=== PATIENT | female | born 1985 | race Caucasian/White ===

== ENCOUNTER 2024-10-25 11:34 | Emergency (ER) | payer BC, SELFPAY ==
--- OUTSIDE RECORDS SUMMARY | 2023-09-23 04:30 | XMS_ITS ---
Author Organization [facility] Address [address] [place] [address] Care Team Providers Care Tap Puller Name Role Phone Needed, Needed Primary Care Provider TARSHA Contreras [phone] REASON FOR VISIT Nose - Sinus Encounters Encounter Location Date Provider Diagnosis [facility] [address] [place] [address] 09/23/2023 TARSHA GUZMÁN Plan Of Treatment No Information History and Physical Notes * HPI (History of Present Illness) Category Sub-Category Detail Notes Category Not es --Narrative-- Mary flowers is a 38 y.o. female who presents for initial evaluation of her nose and sinuses. Progress Notes * Mary ANDRADEDOB:1985 (39 yo F)Acc No.[id number]:09/23/2023 Patient: Mary Sherwood Provider: Trish Guzmán MD :1985 A ge:38 Y S ex:Female Date:09/23/2023 Address:[address], [place] [id number] Pcp:Needed Needed Subjective: * Chief Complaints: * N ose - Sinus * HPI: - -Narrative--: Mary Andrade is a 38 y.o. female who presents for initial evaluation of her nose and sinuses. * Electronic signature of DINESH GUZMÁN MD on 10/25/2024 at 02:06 PM CDT Sign off status: Pending * Provider: Trish Guzmán MD Date: 0 09/23/2023 Generated for Yessica alfaro/Esther/Suellen on: 0 10/25/2024 02:06 PM CDT
[2024-10-25 11:58] VITALS: BP 128/83; PULSE 78; RESP 18; TEMP 37.2; O2SAT 99; BMI 23.3
--- OUTSIDE RECORDS SUMMARY | 2024-10-25 14:07 | XMS_ITS | CCD ---
Author Name Interface, [id number] lity Address [address] [place] [address] Organization [facility] Address [address] [place] [address] Care Team Providers Care Pesticide Chemist Name Role Phone Joanna GAYLE, KARIN, Christin Unavailable Unavaila ble Reason for Visit GENETICS NEW PT EXTERNAL REFERRAL 60 MIN Problems Diagnosis Status Date of Diagnosis Resolution Date Family history of colon cancer Active Family history of malignant neoplasm of ovary (situation) Active Social History Date Name Value Sex Female
--- OUTSIDE RECORDS SUMMARY | 2024-10-25 14:07 | XMS_ITS | Clinical Summary ---
Author Organization [facility] Health Address [address] [place] [address] Care Team Providers Care Pantomimist Name Role Phone Unavailable Primary Care Provider Unavailabl e Social History Tobacco Use Types Packs/Day Years Used Date Smoking Tobacco: Never Assessed Comments Unknown Sex and Gender Information Value Date Recorded Sex Assigned at Not on file Legal Sex Female 2:01 PM PST Gender Identity Not on file Sexual Orientation Not on file Plan of Treatment Not on file
--- OUTSIDE RECORDS SUMMARY | 2024-10-25 14:07 | XMS_ITS | Clinical Summary ---
Author Organization [employer] [facility] Address [address] [place] [id number] Care Team Providers Care Office Electrician Name Role Phone Pcp, No Primary Care Provider Unavailabl e Allergies Active Allergy Reactions Criticality Noted Date Comments Sulfa (Sulfonamide Antibiotics) *Unknown - Childhood Rxn Low 10/13/2014 as a baby Medications MULTIVITAMIN ORAL Take by mouth. Active organ concentrates (ADRENAL ORAL) Take by mouth. Active iron/mfolate/C/E/ B12/biot/sadie (HEMAX,METHYLFOLA TE GLUCOSAMIN, ORAL) Take by mouth. Active amoxicillin 500 mg capsule Take 2 capsules by mouth three times a day as directed* 4 Active ALPRAZolam 0.25 mg tablet Take 0.25 mg by mouth at bedtime if needed. Active amoxicillin-clavu lanate 875-125 mg tabletIndications :Acute frontal sinusitis, recurrence not specified Take 1 Tablet by mouth two times daily with meals for 5 days. 10 Tablet 5 09/26/19 25 Active Problems Problem Noted Date Diagnosed Date ASCUS with positive high risk HPV cervical 07/07 Overview (07/27/2024): 06/2024 ASCUS/HPV+, HPV 16/18 negative 07/2024: colposcopy negative Plan: Pap smear/HPV testing 06/2025 Attention deficit hyperactiv ity disorder (ADHD), inattentive type, mild, in partial remission 02/28/2022 Eating disorder 02/28/2022 ANABELLA (generalized anxiety disorder) 02/28/2022 OCD (obsessive compulsive disorder) 02/28/2022 Persistent depressive disorder 02/28/2022 Tension type headache 05/14/2016 Migraine with aura and witho ut status migrainosus, not intractable 03/22/2016 Anxiety 12/21/2014 Herpes zoster infection 12/21/2014 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 Encounters Date Type Department Care Team Description 10/14/2024 3:46 PM CDT - 10/14/2024 5:28 PM CDT Emergency [facility] [address] [place] [address] Roney Lehman MD Ocular migraine (Primary Dx) Discharge Disposition: Home Self Care 10/14/2024 3:05 PM CDT Office Visit [facility] [address] [place] [address] Leon Pina PA Vision Change 10/14/2024 Travel 09/20/2024 4:30 PM CDT Telemedicine [facility] [address] [place] [address] Mahamed Nguyen NP Telehealth (Virtual visit, no vital taken/Pt is in [place] right now/Had a cold since last Friday but now it's causing tons of pressure in face , and head teeth and head and keeping me up all night with a cough); Medication Management (Pt reported she is currently taking sudafed, and mucinex. Pt is currently using afrin for nasal congestion ) 09/20/2024 Travel 07/27/2024 Telephone [facility] [address] [place] [address] Tess Fitch MD Results from Last 3 Months Immunizations Immunization Administration Dates Next Due COVID-19 vaccine ([facility] 30mcg/0.3mL) 12YO+ AMNA-SUCROSE HELADIO CRANDALL 05/05/2021,08/02/2020,07/12/2020 COVID-19 vaccine ([facility] 30mcg/0.3mL) HELADIO CRANDALL 08/02/2020,07/12/2020 Tdap 11/30/2015,04/21/2015 Social History Tobacco Use Types Packs/Day Years Used Date Smoking Tobacco: Former Cigarettes 0.5 4 0 10/26/2005 - 10/26/2009 Smokeless Tobacco: Never Tobacco Cessation:Counseling Given: Not Answered Comments:10/26/20 ES Alcohol Use Standard Drinks/Week Comments Yes 0 (1 standard drink = 0.6 oz pur e alcohol) 2 drinks a week PHQ-2 Answer Date Recorded PHQ-2 TOTAL SCORE 3 06/22/2024 Social Connections Answer Date Recorded Do you often feel lonely or isolated from those around you? 0 06/22/2024 Financial Resource Strain Answer Date R ecorded Difficulty of Paying Living Expenses 3 06/22/2024 Difficulty of Paying Living Expenses Not on file 06/22/2024 Food Insecurity Answer Date Recorded Do you worry your food will run out before you are able to buy more? 1 06/22/2024 Transportation Needs Answer Date Record ed Does lack of transportation keep you from medica l appointments? 1 06/22/2024 Does lack of transportation keep you from work, meetings or getting things that you need? 1 06/22/2024 Housing Stability Answer Date Recorded What is your housing situation today? 1 06/22/2024 Interpersonal Safety Answer Date Record ed Are you being hit, kicked, p ushed or yelled at (see row info)? No 10/14/2024 Interpersonal Safety Abuse 12 - 18 Not on file 10/14/2024 Interpersonal Safety Ambulatory Vulnerability No t on file 10/14/2024 Utilities Answer Date Recorded Do you have trouble paying f or utilities (for example, heat, electricity, water, phone)? 1 06/22/2024 Comments No Sex and Gender Information Value Date Recorded Sex Assigned at Not on file Legal Sex Female 8:47 AM CDT Gender Identity Not on file Sexual Orientation Not on file Obstetrics History Last Filed Vital Signs Vital Sign Reading Time Taken Comments Blood Pressure 138/98 10/14/2024 5:15 PM CDT Pulse 69 10/14/2024 5:15 PM CDT Temperature 36.8 C (98.3 F) 10/14/2024 3:54 PM CDT Respiratory Rate 16 10/14/2024 5:15 PM CDT Oxygen Saturation 98% 10/14/2024 5:15 PM CDT Inhaled Oxygen Concentration - - Weight 63.5 kg (140 lb) 10/14/2024 3:54 PM CDT Height 165.1 cm (5' 5) 10/14/2024 3:54 PM CDT Body Mass Index 23.3 10/14/2024 3:54 PM CDT Plan of Treatment Upcoming Encounters Date Type Department Care Team (Late st Contact Info) Description 10/28/2024 7:40 AM CDT Office Visit [facility] [address] [place] [phone] Cindy Aguirre, OD [address] [place] [address] Health Maintenance Due Date Last Done Comments HIV for age 15-65 07/04/2002 Hepatitis C screening for age 18-79 07/04/2005 Hepatitis B series for 19+ (1 of 3 - 19+ 3-dose series) 07/04/2006 COVID-19 vaccine series ( season) 2023 05/05/2021, 05/05/2021, 08/02/2020, Additional history exists Influenza Vaccine (#1) 2024 BMI (ht and wt on same day) for age 18+ 06/22/2025 06/22/2024, 10/26/2020 Depression screening for age 12+ 06/22/2025 06/22/2024, 10/26/2020 Pap test for age 21-65 07/21/2025 (Verified in Care Everywhere or Patient Record), 06/22/2024, 06/22/2024 Tetanus booster 11/29/2025 11/30/2015, 04/21/2015 Pneumococcal series for age 6-49 Aged Out No longer eligible based on patient's age to complete this topic Procedures Procedure Name Priority Date/Time Associated Diagnosis Comments CT HEAD BRAIN WO STAT 10/14/2024 4:[address] ANGIO HEAD AND NECK CAROTID STAT 10/14/2024 4:35 PM CDT CBC WITH AUTO DIFFERENTIAL STAT 10/14/2024 4:15 PM CDT BASIC METABOLIC PANEL STAT 10/14/2024 4:15 PM CDT CBC WITH AUTO DIFFERENTIAL STAT 10/14/2024 4:15 PM CDT WEED SCIENCE RESEARCH TECHNICIAN THIN PREP PAP SCREEN IMAGED Routine 06/22/2024 5:31 PM DIRECTOR TALENT MANAGEMENT Screening for malignant neoplasm of cervix from Last 3 Months or Most Recently Relevant to Health Maintenance Results * CT HEAD BRAIN WO (10/14/2024 4:39 PM CDT) Anatomical Region Laterality Modality HEAD, BRAIN Computed Tomogra phy 10/14/2024 4:59 PM CDT Impressions 10/14/2024 4:[address] head CT. Please note that all CT scans at this facility use dose modulation, iterative reconstruction, and/or weight-based dosing when appropriate to reduce radiation dose to as low as reasonably achievable. Dictated by: Vesna Moreira MD @ 10/14/2024 16:59:29 (Electronically Signed) Narrative 10/14/2024 4:59 PM CDT For Patients: As a result of the Cures Act, medical imaging exams and procedure reports are released immediately into your electronic medical record. You may view this report before your referring provider. If you have questions, please contact your health care provider. CT HEAD DATE: 10/14/2024 CLINICAL HISTORY: Patient with headache. TECHNIQUE: Standard CT scanning of the head was performed. COMPARISON: None. FINDINGS: There is no intracranial hemorrhage. The cardona matter-white matter differentiation is intact. The size of the ventricular system is normal for age. There is no mass effect or midline shift. The calvarium is unremarkable. The orbits are unremarkable. The paranasal sinuses are unremarkable. The mastoid air cells are unremarkable. The soft tissues are unremarkable. Procedure Note Vesna Moreira MD - 10/14/2024 For Patients: As a result of the Cures Act, medical imagingexams and procedure reports are released immediately into your electronicmedical record. You may view this report before your referring provider.If you have questions, please contact your health care provider. CT HEAD DATE: 10/14/2024 CLINICAL HISTORY: Patient with headache. TECHNIQUE: Standard CT scanning of the head was performed. COMPARISON: None. FINDINGS: There is no intracranial hemorrhage. The cardona matter-white matter differentiation is intact. The size of the ventricular system is normal for age. There is no mass effect or midline shift. The calvarium is unremarkable. The orbits are unremarkable. The paranasal sinuses are unremarkable. The mastoid air cells are unremarkable. The soft tissues are unremarkable. IMPRESSION: Normal head CT. Please note that all CT scans at this facility use dose modulation,iterative reconstruction, and/or weight-based dosing when appropriate toreduce radiation dose to as low as reasonably achievable. Dictated by: Vesna Moreira MD @ 10/14/2024 16:59:29 (Electronically Signed) us Roney Lehman MD CT Final Result * CTA HEAD AND NECK CAROTID (10/14/2024 4:35 PM CDT) Anatomical Region Laterality Modality BRAIN, NECK Computed Tomogra phy 10/14/2024 5:01 PM CDT Addenda Addendum by Vesna Moreira MD on 10/14/2024 5:02 PM CDT For Patients: As a result of the Cures Act, medical imaging exams and procedure reports are released immediately into your electronic medical record. You may view this report before your referring provider. If you have questions, please contact your health care provider. CT ANGIOGRAM HEAD DATE: 10/14/2024 CLINICAL HISTORY: Patient with focal neurological deficits. TECHNIQUE: Standard helical CT image acquisition through the intracranial circulation following intravenous administration of contrast material with bolus tracking. 2D and 3D MIP images for post-processing were performed and interpreted on an independent workstation and 3D images were permanently archived. COMPARISON: CT same day. FINDINGS: There is no proximal intracranial large vessel occlusion. There is no intracranial aneurysm. The right internal carotid artery is normal. The right middle cerebral artery and its branches are normal. The right anterior cerebral artery and its branches are normal. The left internal carotid artery is normal. The left middle cerebral artery and its branches are normal. The left anterior cerebral artery and its branches are normal. The anterior communicating artery is well visualized and appears normal. The right vertebral artery and PICA are normal. The left vertebral artery and PICA are normal. The left vertebral artery is dominant. The basilar artery is patent and appears normal. The right posterior cerebral artery is normal. The left posterior cerebral artery is normal. The visualized venous structures are patent. IMPRESSION: Patent proximal intracranial vasculature without intracranial aneurysms. Please note that all CT scans at this facility use dose modulation, iterative reconstruction, and/or weight-based dosing when appropriate to reduce radiation dose to as low as reasonably achievable. Dictated by: Vesna Moreira MD @ 10/14/2024 17:02:42 (Electronically Signed) Impressions 10/14/2024 5:01 PM CDT Patent cervical vasculature. Please note that all CT scans at this facility use dose modulation, iterative reconstruction, and/or weight-based dosing when appropriate to reduce radiation dose to as low as reasonably achievable. Dictated by: Vesna Moreira MD @ 10/14/2024 17:01:07 (Electronically Signed) Narrative 10/14/2024 5:01 PM CDT For Patients: As a result of the Cures Act, medical imaging exams and procedure reports are released immediately into your electronic medical record. You may view this report before your referring provider. If you have questions, please contact your health care provider. CT ANGIOGRAM NECK DATE: 10/14/2024 CLINICAL HISTORY: Patient with focal neurological deficits. TECHNIQUE: Standard helical CT image acquisition of the neck up to the skull base after bolus intravenous contrast enhancement. 2D and 3D MIP images for post-processing were performed and interpreted on an independent workstation and 3D images were permanently archived. COMPARISON: CT same day. FINDINGS: The origins of the great vessels from the aortic arch are patent. The origin of the right vertebral artery is patent. The origin of the left vertebral artery is patent. The common carotid arteries are patent. There is no stenosis at the origin of the right internal carotid artery. There is no stenosis at the origin of the left internal carotid artery. The rest of the cervical segments of the internal carotid arteries are patent up to the skull base. The left vertebral artery is dominant. The cervical segments of the vertebral arteries are patent up to the skull base. The visualized lung apices are unremarkable. The thyroid gland is unremarkable. The soft tissues of the neck are unremarkable. There are degenerative changes in the cervical spine. Procedure Note Vesna Moreira MD - 10/14/2024 For Patients: As a result of the Cures Act, medical imagingexams and procedure reports are released immediately into your electronicmedical record. You may view this report before your referring provider.If you have questions, please contact your health care provider. CT ANGIOGRAM NECK DATE: 10/14/2024 CLINICAL HISTORY: Patient with focal neurological deficits. TECHNIQUE: Standard helical CT image acquisition of the neck up to theskull base after bolus intravenous contrast enhancement. 2D and 3D MIPimages for post- processing were performed and interpreted on anindependent workstation and 3D images were permanently archived. COMPARISON: CT same day. FINDINGS: The origins of the great vessels from the aortic arch are patent. Theorigin of the right vertebral artery is patent. The origin of the leftvertebral artery is patent. The common carotid arteries are patent. There is no stenosis at the origin of the right internal carotid artery. There is no stenosis at the origin of the left internal carotid artery. The rest of the cervical segments of the internal carotid arteries arepatent up to the skull base. The left vertebral artery is dominant. The cervical segments of thevertebral arteries are patent up to the skull base. The visualized lung apices are unremarkable. The thyroid gland is unremarkable. The soft tissues of the neck are unremarkable. There are degenerative changes in the cervical spine. IMPRESSION: Patent cervical vasculature. Please note that all CT scans at this facility use dose modulation,iterative reconstruction, and/or weight-based dosing when appropriate toreduce radiation dose to as low as reasonably achievable. Dictated by: Vesna Moreira MD @ 10/14/2024 17:01:07 (Electronically Signed) us Roney Lehman MD CT Edite d Result - Final * CBC WITH AUTO DIFFERENTIAL (10/14/2024 4:15 PM CDT) WHITE BLOOD COUNT 7.2 4.5 - 11.0 thou/cu mm 10/14/2024 4:[address] [facility] RED BLOOD COUNT 4.21 4.00 - 5.20 mil/cu mm 10/14/2024 4:22 PM [facility] HEMOGLOBIN 12.6 12.0 - 16.0 g/dL 10/14/2024 4:22 PM [facility] HEMATOCRIT 37.7 33.0 - 51.0 % 10/14/2024 4:22 PM [facility] MCV 90 80 - 100 fL 10/14/2024 4:22 PM [facility] MCH 29.9 26.0 - 34.0 pg 10/14/2024 4:22 PM [facility] MCHC 33.4 32.0 - 36.0 g/dL 10/14/2024 4:22 PM [facility] RDW 12.8 11.5 - 15.5 % 10/14/2024 4:22 PM [facility] PLATELET COUNT 214 140 - 440 thou/cu mm 10/14/2024 4:22 PM [facility] MPV 10.6 6.5 - 11.0 fL 10/14/2024 4:22 PM [facility] % NEUT 47.6 % 10/14/2024 4:22 PM [facility] % LYMPH 39.8 % 10/14/2024 4:22 PM [facility] % MONO 8.4 % 10/14/2024 4:22 PM [facility] % EOS 3.5 % 10/14/2024 4:22 PM [facility] % BASO 0.7 % 10/14/2024 4:22 PM [facility] ABSOLUTE NEUTROPHILS 3.4 1.7 - 7.0 thou/cu mm 10/14/2024 4:22 PM [facility] ABSOLUTE LYMPHOCYTES 2.9 0.9 - 2.9 thou/cu mm 10/14/2024 4:22 PM [facility] ABSOLUTE MONOCYTES 0.6 <0.9 thou/cu mm 10/14/2024 4:22 PM [facility] ABSOLUTE EOSINOPHILS 0.3 <0.5 thou/cu mm 10/14/2024 4:[address] [facility] ABSOLUTE BASOPHILS 0.1 <0.3 thou/cu mm 10/14/2024 4:[address] [facility] Blood BLOOD SPECIMEN / Unknown IV Start / Unknown 10/14/2024 4:15 PM CDT 10/14/2024 4:19 PM CDT us Roney Lemhan MD HEMATOLOGY Final Result [facility] [address] [place] [address] * (ABNORMAL) BASIC METABOLIC PANEL (10/14/2024 4:15 PM CDT) SODIUM 139 136 - 145 mmol/L 10/14/2024 4:40 PM [facility] POTASSIUM 3.8 3.5 - 5.1 mmol/L 10/14/2024 4:40 PM [facility] CHLORIDE 104 98 - 107 mmol/L 10/14/2024 4:40 PM [facility] CO2,TOTAL 24 22 - 29 mmol/L 10/14/2024 4:40 PM [facility] ANION GAP 11 5 - 18 10/14/2024 4:40 PM [facility] GLUCOSE 101(H) 70 - 99 mg/dL 10/14/2024 4:40 PM [facility] CALCIUM 9.0 8.8 - 10.4 mg/dL 10/14/2024 4:40 PM [facility] Comment: Reference ranges for this test were updated on 02/24/2024 to reflect our healthy population more accurately. Reference range changes are not retroactively applied to results, but previous results using the same methodology can be interpreted in the context of the new reference range. BUN 18 6 - 20 mg/dL 10/14/2024 4:40 PM [facility] CREATININE 1.26(H) 0.50 - 0.90 mg/dL 10/14/2024 4:40 PM [facility] BUN/CREAT RATIO 14 10 - 20 4:[address] [facility] eGFR 57(L) >90 mL/min/1. 73m2 10/14/2024 4:[address] [facility] Comment:As of 2021, eG FR is calculated by the CKD-EPI creatinine equation without race adjustment. eGFR can be influenced by muscle mass, exercise, and diet. The reported eGFR is an estimation only and is only applicable if the renal function is stable. Blood BLOOD SPECIMEN / Unknown IV Start / Unknown 10/14/2024 4:15 PM CDT 10/14/2024 4:19 PM CDT Roney Lehman MD CHEMISTRY Final Result [facility] [address] [place] [id number] * (ABNORMAL) WEED SCIENCE RESEARCH TECHNICIAN THIN PREP PAP SCREEN IMAGED [[id number]] (06/22/2024 5:31 PM DIRECTOR TALENT MANAGEMENT) Case Report Gynecologic Cytology Report Case: [id number] Authorizing Provider: Jane Smith NP Collected: 06/22/2024 173 Ordering Location: [facility] Received: 06/22/2024 1731 Clinic First Screen: Daniela Rosales Pathologist: Sam Diaz Jr., MD Specimen: WEED SCIENCE RESEARCH TECHNICIAN ThinPrep Vial Screening, Cervical 07/06/2024 4:44 PM CDT [facility]-C ENTRAL LABORATORY INTERPRETATION /RESULT ATYPICAL SQUAMOUS CELLS OF UNDETERMINED SIGNIFICANCE (ASCUS)(A) (none) 07/06/2024 4:44 PM CDT [facility] ENTRAL LABORATORY at 1644 CDT ORGANISM(S) Shift in sha suggestive of bacterial vaginosis 07/06/2024 4:44 PM CDT [facility] ENTRAL LABORAT[facility] SPECIMEN ADEQUACY Satisfactory for evaluation No endocervical component seen Obscuring bacteria 07/06/2024 4:44 PM CDT [facility] HPV REQUEST HPV and PAP 07/06/2024 4:44 PM CDT [facility] Date of LMP 05/27/2024 07/06/2024 4:44 PM CDT [facility] Last Pap Date uncertain 07/06/2024 4:44 PM CDT [facility] Last Pap Result NIL 07/06/2024 4:44 PM CDT [facility] Abnormal Pap or Valencia Bx in last 5 years No 07/06/2024 4:44 PM CDT [facility] Menstrual Status Regular Periods 07/06/2024 4:44 PM CDT [facility] Valencia Bx Done Today No 07/06/2024 4:44 PM CDT [facility] Additional Information None given 07/06/2024 4:44 PM CDT [facility] Comment: Cytology is screened at [facility] - [address] [address] and [facility] - [address] [place] [address] and [facility] - [address] [facility] [place] [address] Interpreted at [facility] - [address], [place] [address] Automated Review Failed 07/06/2024 4:44 PM CDT [facility] Comment:Processing failed, m anual screening required. ThinPrep Imaging System, [employer] ANCILLARY TESTING WEED SCIENCE RESEARCH TECHNICIAN HPV Ordered, Please see separate report 07/06/2024 4:44 PM CDT [facility] Note The pap test is a screening technique, not a diagnostic procedure. It is used primarily to screen for squamous cancers and precursor lesions. Published studies have shown that it is subject to both false negative and false positive results. The pap test should not be used as the sole means to diagnose or exclude pre-malignant and malignant lesions. 07/06/2024 4:44 PM CDT [facility] Other (Cervical) Non-Blood / Unknown 06/22/2024 5:31 PM DIRECTOR TALENT MANAGEMENT 06/22/2024 5:31 PM DIRECTOR TALENT MANAGEMENT us Jane Smith NP PATHOLOGY/CYTOLOGY Final Res ult [facility] [address] [place] [address], from Last 3 Months or Most Recently Relevant to Health Maintenance Insurance [employer] [facility] Care Teams Office Electrician Relationship Specialty Start Date End Date Pcp, No . PCP - General 10/26/20
--- OUTSIDE RECORDS SUMMARY | 2024-10-25 14:07 | XMS_ITS | CCD ---
Author Name Interface, [id number] lity Address [address] [facility] [address] [place] [address] Organization [facility] Address [address] [facility] [address] [place] [address] Care Team Providers Care [employer] Math Teacher Name Role Phone Joanna GAYLE, KARIN, Christin Unavailable Unavaila ble Reason for Visit GENETICS NEW PT EXTERNAL REFERRAL 60 MIN Problems Diagnosis Status Date of Diagnosis Resolution Date Family history of colon cancer Active Family history of malignant neoplasm of ovary (situation) Active Social History Date Name Value Sex Female
--- OUTSIDE RECORDS SUMMARY | 2024-10-25 14:07 | XMS_ITS | Clinical Summary ---
Author Organization [facility] Address [address] [place] [address] [address] [place] [address] Care Team Providers Care Production Team Leader Name Role Phone Provider, No Attributed RESOURCE Unavailable Unavailable Allergies Active Allergy Reactions Criticality Noted Date Comments Sulfa Drugs Hives (High) High 05/16/2015 Medications diphenhydramine (BENADRYL) 25 mg tablet Take 25 mg by mouth every 4 to 6 hours as needed (nausea) Active acetaminophen (TYLENOL) 500 mg tablet Take 500 mg by mouth Every 4 hours as needed for mild pain or fever > (indicate temp) Active butalbital-aceta minophen-caffein e (FIORICET) 50-300-40 mg capsule (50-300-40 mg)Indications:I ntractable migraine without status migrainosus, unspecified migraine type Take 1 capsule by mouth Every 8 hours as needed for headache 15 capsule 6 Active Multiple Vitamins-Mineral s (MULTIVITAL) tablet Take 1 tablet by mouth 1 time per day Active Calcium Citrate-Vitamin D (CALCIUM + D PO) Take 1 tablet by mouth 1 time per day Active Active Problems No known active problems Resolved Problems Problem Noted Date Diagnosed Date Resolved Date Puerperal endometritis, post condition or complication ([facility]) 01/23/2016 03/01/2016 Delayed delivery after SROM (spontaneous rupture of membranes) ([facility]) 01/19/2016 03/01/20 16 , first ([facility]) 05/16/2015 1 05/01/2015 Immunizations Immunization Administration Dates Next Due TDAP 11/30/2015 Family History Medical History Relation Comments Not otherwise listed - Cancer Father Kathi ng cancer Ovarian Cancer Maternal Grandmother Not otherwise listed - Cancer Mother Le ukemia Relation Status Comments Father Alive Maternal Grandmother Mother Alive Social History Tobacco Use Types Packs/Day Years Used Date Smoking Tobacco: Former Cigarettes 1 5 Smokeless Tobacco: Never Alcohol Use Standard Drinks/Week Comments Yes 4 (1 standard drink = 0.6 oz pur e alcohol) Sexually Active Control Partners Comments Not Currently None Male Comments No Sex and Gender Information Value Date Recorded Sex Assigned at Not on file Legal Sex Female 1:27 PM MARKETING COORDINATOR Gender Identity Not on file Sexual Orientation Not on file Last Filed Vital Signs Vital Sign Reading Time Taken Comments Blood Pressure 122/82 03/01/2016 3:24 PM MARKETING COORDINATOR Pulse 72 03/01/2016 3:24 PM MARKETING COORDINATOR Temperature 37.1 C (98.7 F) 01/24/2016 6:48 PM CDT Respiratory Rate 17 01/24/2016 6:48 PM CDT Oxygen Saturation 97% 01/24/2016 8:10 AM CDT Inhaled Oxygen Concentration - - Weight 65.5 kg (144 lb 6.4 oz) 03/01/2016 3:24 P M MARKETING COORDINATOR Height 165.1 cm (5' 5) 03/01/2016 3:24 PM MARKETING COORDINATOR Body Mass Index 24.03 03/01/2016 3:24 PM MARKETING COORDINATOR Plan of Treatment Health Maintenance Due Date Last Done Comments Hepatitis C Screening 1987 HPV Vaccine (1 - 3-dose series) 07/04/2002 Hepatitis B Vaccine (1 of 3 - 19+ 3-dose series) 07/04/2006 Lipid Screening 07/04/2008 Pap Smear 12/22/2017 12/22/2014 (Previously completed) Covid-19 Vaccine (2023-2 5 season) 2023 Influenza Vaccine (Season Ended) 2024 09/21/2014 (Previously completed), 09/21/2014 (Previously completed) TDAP/TD VACCINE (2 - Td or Tdap) 11/29/2025 11/30/2015 HIV One Time Screening Ages 15-65 Completed 08/17/2015 Pneumococcal Vaccine (0-5yr; and At-risk 6-49yr) Aged Out No longer eligible b ased on patient's age to complete this topic Procedures Procedure Name Priority Date/Time Associated Diagnosis Comments HIV SCREEN REFLEX TO CONFIRMATION Routine 08/17/2015 8:30 AM CDT Encounter for supervision of normal first in first trimester from Last 3 Months or Most Recently Relevant to Health Maintenance Results * HIV SCREEN REFLEX TO CONFIRMATION (08/17/2015 8:30 AM CDT) HIV 1 Ag HIV 1/2 Ab Nonreactive Nonreactive 08/17/2015 11:31 AM CDT [facility] Blood BLOOD SPECIMEN / Unknown Venipuncture / Unknown 08/17/2015 8:30 AM CDT 08/17/2015 8:30 AM CDT us Tracie Gupta MD LAB BLOOD Final Result [address] [address] from Last 3 Months or Most Recently Relevant to Health Maintenance Advance Directives For more information, please contact: [phone] * Full Code (Latest Code Status on File) Date Activated Date Inactivated Comments 01/23/2016 1:05 AM 01/25/2016 1:14 AM * Full Code Date Activated Date Inactivated Comments 01/19/2016 11:48 AM 01/21/2016 9:35 PM Care Teams Production Team Leader Relationship Specialty Start Date End Date Provider, No Attributed, RESOURCE [address] PCP - Attributed Provider 06/15/18
--- OUTSIDE RECORDS SUMMARY | 2024-10-25 14:07 | XMS_ITS | Encounter Summary ---
Author Organization [facility] Address [address] [place] [address] Care Team Providers Care Hand Ironer Name Role Phone Unavailable Primary Care Provider Unavailabl e Prior Encounters Date Type Department Care Team Description 05/10/2019 Converted 13x Documents [facility] [address] [place] [id number] <No scans attached> 05/10/2019 Converted CPS Chart Documents [facility] [address] [place] [address] <No scans attached> 05/10/2019 Converted 13x Documents [facility] [address] [place] [address] <No scans attached> Plan of Treatment Not on file Procedures Procedure Name Priority Date/Time Associated Diagnosis Comments MISSED APPOINTMENT Routine 12/12/2020 2: 00 AM CDT COMPREHENSIVE ORAL EVALUATION - NEW OR ESTABLISHED PATIENT Routine 06/05/2020 2:00 AM PACK MULE WORKER ORAL HYGIENE INSTRUCTIONS Routine 2020 2:00 AM PACK MULE WORKER TOPICAL APPLICATION OF FLUORIDE VARNISH Routine 06/05/2020 2:00 AM PACK MULE WORKER PROPHYLAXIS - ADULT Routine 06/05/2020 2 :00 AM PACK MULE WORKER PANORAMIC RADIOGRAPHIC IMAGE Routine 06/05/2020 2:00 AM PACK MULE WORKER INTRAORAL - COMPREHENSIVE SERIES OF RADIOGRAPHIC IMAGES Routine 06/05/2020 2:00 AM PACK MULE WORKER INTRAORAL PHOTO Routine 06/05/2020 2:00 AM PACK MULE WORKER INTRAORAL PHOTO Routine 06/05/2020 2:00 AM PACK MULE WORKER INTRAORAL PHOTO Routine 06/05/2020 2:00 AM PACK MULE WORKER INTRAORAL PHOTO Routine 06/05/2020 2:00 AM PACK MULE WORKER 31 O COMPOSITE FILLING Routine 2:00 AM PACK MULE WORKER 15 O COMPOSITE FILLING Routine 2:00 AM PACK MULE WORKER CANCELLED APPOINTMENT Routine 11/23/2019 2:00 AM CDT MISSED APPOINTMENT Routine 06/01/2019 2: 00 AM PACK MULE WORKER Visit Diagnoses Not on file
--- OUTSIDE RECORDS SUMMARY | 2024-10-25 14:07 | XMS_ITS | Encounter Summary ---
Author Organization [facility] Address [address] [place] [address] [address] [place] [address] Care Team Providers Care Wound Treatment Rn Name Role Phone Tracie Gupta MD Unavailable [phone] Provider, No Attributed RESOURCE Unavailable Unavailable Tracie Gupta MD Unavailable [phone] Provider, No Attributed RESOURCE Unavailable Unavailable Provider, No Attributed RESOURCE Primary Care Pr ovider Unavailable Encounter Details Date Type Department Care Team (Late st Contact Info) Description 08/01/2016 Lab Requisition [facility] [address] [place] [address] Marleen Santo MD [address] [place] [address] Encounter for screening Social History Tobacco Use Types Packs/Day Years Used Date Smoking Tobacco: Former Cigarettes 1 5 Smokeless Tobacco: Never Alcohol Use Standard Drinks/Week Comments Yes 4 (1 standard drink = 0.6 oz pur e alcohol) Sexually Active Control Partners Comments Not Currently None Male Comments No Sex and Gender Information Value Date Recorded Sex Assigned at Not on file Legal Sex Female 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 Answer Date of Assessment Author No 01/23/2016 1:20 AM Solo Burnett RN * Is this person blind or does he/she have difficulty seeing even when wearing glasses? Answer Date of Assessment Author No 01/23/2016 1:20 AM Solo Burnett RN * Do you have difficulty with walking, balance, climbing stairs, or had a fall in the last 3 months? Answer Date of Assessment Author No 01/23/2016 1:25 AM CDT Solo Grant RN * Does the patient have difficulty dressing or bathing? Answer Date of Assessment Author No 01/19/2016 10:57 AM CDT Trish Raphael RN * Because of a physical, mental, or emotional condition; does this person have difficulty doing errands alone such as visiting a doctor's office or shopping? Answer Date of Assessment Author No 01/19/2016 10:57 AM CDT Trish Raphael RN documented as of this encounter Mental Status * Because of a physical, mental, or emotional condition; does this person have serious difficulty concentrating, remembering, or making decisions? Answer Entry Date Author No 01/19/2016 10:57 AM CDT Trish Raphael RN documented in this encounter Plan of Treatment Not on file documented as of this encounter Procedures Procedure Name Priority Date/Time Associated Diagnosis Comments TISSUE EXAM Routine 07/31/2016 2:30 PM CDT Encounter for screening documented in this encounter Results * TISSUE EXAM (07/31/2016 2:30 PM CDT) FINAL DIAGNOSIS Skin, left upper abdomen, shave biopsy: -Lentiginous compound nevus with mild atypia, margins free. 08/02/2016 12:22 PM T [facility] at 1222 CDT GROSS DESCRIPTION Received in formalin labeled left upper abdomen is a 0.6 x 0.4 x 0.1 cm colón-white and smooth skin punch with a 0.4 x 0.1 cm brown focal area of discoloration that comes within 0.1 cm of the margin. Ink code: Black Resection margin Entirely submitted as follows (1 block): A1 Entire specimen, bisected SS:sl 08/02/2016 12:22 PM T [facility] MICROSCOPIC DESCRIPTION Microscopic examination performed by signing pathologist. 08/02/2016 12:22 PM T [facility] Clinical Information RULE OUT ATYPIA. 08/02/2016 12:22 PM CDT [facility] CASE REPORT Surgical Pathology Report Case: [id number] Authorizing Provider: Marleen Santo MD Collected: 07/31/2016 1430 Pathologist: Marga Lainez MD Received: 08/01/2016 0901 Specimen: Skin, LEFT UPPER ABDOMEN 08/02/2016 12:22 PM CDT [facility] EMBEDDED IMAGES 08/02/2016 12:22 PM CDT [facility] Tissue SKIN SWAB / Unknown 07/31/2016 2:30 PM CDT 08/01/2016 9:01 AM CDT us Marleen Santo MD PATHOLOGY Final Result [facility] [address] [facility] [place] [address] [address] documented in this encounter Visit Diagnoses Diagnosis Encounter for screening Screening for unspecified condition documented in this encounter Care Teams Wound Treatment Rn Relationship Specialty Start Date End Date Tracie Gupta MD [facility] [place] [address] PCP - Attributed Provider 03/13/16 Provider, No Attributed, RESOURCE [address] PCP - Attributed Provider 04/20/17 8 Tracie Gupta MD [facility] [place] [address] PCP - Attributed Provider 05/08/1705/23 Provider, No Attributed, RESOURCE [address] PCP - Attributed Provider 06/15/18 Provider, No Attributed, RESOURCE [address] PCP - General 03/15/19 03/15/19 documented as of this encounter
--- OUTSIDE RECORDS SUMMARY | 2024-10-25 14:07 | XMS_ITS | Clinical Summary ---
Author Organization [facility] Address [address] [address] Phone Care Team Providers Care Enterprise Sales Executive Name Role Phone Unavailable Primary Care Provider Unavailabl e Allergies Active Allergy Reactions Criticality Noted Date Comments Sulfa Drugs Hives,RASH High 05/16/2015 Other reaction(s): Hives (High) Medications SUMAtriptan (IMITREX) 25 MG tablet Take 1 Tab by mouth one time as needed for Migraine for up to 1 dose. Dose may be repeated after 2 hours. Do not exceed 200 mg in 24 hours 9 Tab 1 7 Active ascorbic acid (VITAMIN C) 500 MG tablet Take 500 mg by mouth one time a day. Active Multiple Vitamins-Minera ls (ONE-A-DAY VITACRAVES) Chew Tab Take by mouth. Activ e ibuprofen (ADVIL) 200 MG tablet Take 400 mg by mouth every six hours as needed for Pain. Administer with food. Active cyclobenzaprine (FLEXERIL) 10 MG tablet Take 1 Tab by mouth three times a day as needed for Muscle Spasms. 30 Tab 7 Active Active Problems Problem Noted Date Diagnosed Date Tension headache 05/14/2016 Migraine with aura and witho ut status migrainosus, not intractable 03/22/2016 Immunizations Immunization Administration Dates Next Due Tdap (7 years and older) 11/30/2015 Medical History Medical History Date Comments Pap smear for cervical cancer screening 12/2014 normal Migraines visual aura, wea kness Migraine with aura Family History Medical History Relation Comments Hypertension Father Lung Cancer Father Colon Cancer Maternal Grandmother Ovarian Cancer Maternal Grandmother Diabetes Mother prediabetes Hypertension Mother Leukemia Mother Hypertension Paternal Grandfather Hypertension Paternal Grandmother Relation Status Comments Father Maternal Grandmother Mother Alive Paternal Grandfather Paternal Grandmother Social History Tobacco Use Types Packs/Day Years Used Date Smoking Tobacco: Former Cigarettes Q uit: 2009 Smokeless Tobacco: Never Tobacco Cessation:Counseling Given: No Alcohol Use Standard Drinks/Week Comments Yes 0 (1 standard drink = 0.6 oz pur e alcohol) social Comments No Sex and Gender Information Value Date Recorded Sex Assigned at Not on file Legal Sex Female 9: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 Gender Identity Not on file Sexual Orientation Not on file Obstetrics History Last Filed Vital Signs Vital Sign Reading Time Taken Comments Blood Pressure 116/74 11/21/2016 9:30 AM CDT Pulse 85 11/21/2016 9:30 AM CDT Temperature 36.2 C (97.1 F) 11/21/2016 9:30 AM CDT Respiratory Rate 16 11/21/2016 9:30 AM CDT Oxygen Saturation 100% 11/06/2016 11:40 AM CDT Inhaled Oxygen Concentration - - Weight 61.2 kg (135 lb) 11/21/2016 9:30 AM CDT Height 165.1 cm (5' 5) 11/21/2016 9:30 AM CDT Body Mass Index 22.47 11/21/2016 9:30 AM CDT Plan of Treatment Health Maintenance Due Date Last Done Comments Cervical Cancer Screening 1987 Last pap w/ HPV Testing 1987 Last pap w/o HPV Testing 1987 Hepatitis B Vaccine (Standin g Order) (1 of 3 - 19+ 3-dose series) 07/04/2006 TETANUS (Standing Order) 11/29/2025 11/30/2015 PERTUSSIS (Standing Order) Completed 11/30/2015 HPV Vaccine (Standing Order) Aged Out No longer eligible based on patient's age to complete this topic Pneumococcal/PCV20 Vaccine: Pediatrics (2-5 yrs) and At-Risk Patients (6-49 yrs) (Standing Order) Aged Out No longer eligible b ased on patient's age to complete this topic Insurance [facility] OTHER STATE [facility] [employer] ([place] [employer])
--- OUTSIDE RECORDS SUMMARY | 2024-10-25 14:07 | XMS_ITS | Patient Health Record ---
Author Organization [facility] Address [address] [place] [address] Care Team Providers Care Punch Operator Name Role Phone Needed, Needed Primary Care Provider TARSHA Contreras Unavailable [phone] Reason For Referral No Information Plan Of Treatment No Information
--- OUTSIDE RECORDS SUMMARY | 2024-10-25 14:07 | XMS_ITS | Clinical Summary ---
Author Organization [facility] Address [address] [place] [address] Care Team Providers Care Manager Military Name Role Phone Needs Pcp, Assignment Primary Care Provider [phone] Source Comments You are receiving this document as you are listed as the primary care provider,follow-up provider, or the patient has been referred to you for consultation.This is in compliance with the Medicare andMedicaid EHR Incentive Program,which states Providers who transition their patient to another setting of careor provider of care or refers their patient to another provider of care shouldprovide summary care record for each transition of care or referral. [employer] Allergies Active Allergy Reactions Criticality Noted Date Comments Sulfa Antibiotics Other, see comments 1 Medications * This document contains information received from the source organization and may not represent a complete record from that organization. Ascorbic Acid 500 MG Chew and swallow 1 Tablet (500 mg) by mouth. Active Multiple Vitamins-Minerals (ONE-A-DAY VITACRAVES) CHEW Chew and swallow by mouth. Active CALCIUM CITRATE-VITAMIN D3 OR Take 1 Tablet by mouth. Active cephalexin (KEFLEX) 500 MG capsule Take 1 Capsule (500 mg) by mouth three times a day. 3 Active cyclobenzaprine (FLEXERIL) 5 MG tablet Take 1-2 Tablets (5-10 mg) by mouth every 8 hours as needed. 3 Active azithromycin (ZITHROMAX) 250 MG tablet Take 1 Tablet (250 mg) by mouth. 3 Active ondansetron (ZOFRAN-ODT) 4 MG disintegrating tablet Take 1-2 Tablets (4-8 mg) by mouth every 8 hours as needed. 3 Active oxyCODONE-acetamino phen (PERCOCET) 5-325 MG tablet Take 1 Tablet by mouth. [address] (PROTONIX) 40 MG tablet Take 1 Tablet (40 mg) by mouth daily. 3 Active fluticasone propionate (FLONASE) 50 MCG/ACT nasal solution Place 1-2 Sprays into both nostrils daily. 3 Active benzonatate (TESSALON) 100 MG capsule Take 1-2 Capsules (100-200 mg) by mouth three times a day as needed. 3 Active tobramycin (TOBREX) 0.3 % eye drop solution Apply 1-2 drop into affected eye every four hours as directed Continue until symptoms improve. 3 Active mirtazapine (REMERON) 7.5 MG tabletIndications:G AD (generalized anxiety disorder) (HRC) Take 1 Tablet (7.5 mg) by mouth at bedtime as needed (insomnia). 30 Tablet 1 4 01/14/20 25 Active ALPRAZolam (XANAX) 0.25 MG tabletIndications:G AD (generalized anxiety disorder) (HRC),Anxiety (HRC) Take 1 Tablet (0.25 mg) by mouth at bedtime as needed. 30 Tablet 1 4 Active sertraline (ZOLOFT) 50 MG tabletIndications:G AD (generalized anxiety disorder) (HRC) Take 1 Tablet (50 mg) by mouth daily. 30 Tablet 1 4 02/12/20 25 Active Active Problems Problem Noted Date Diagnosed Date ANABELLA (generalized anxiety disorder) 02/28/2022 OCD (obsessive compulsive disorder) 02/28/2022 Attention deficit hyperactiv ity disorder (ADHD), inattentive type, mild, in partial remission 02/28/2022 Persistent depressive disorder 02/28/2022 Eating disorder 02/28/2022 Anxiety 12/21/2014 Herpes zoster infection 12/21/2014 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 Immunizations Immunization Administration Dates Next Due [facility] 12+ 05/05/2021,08/02/2020,06/20 Pfizer Monovalent 12+ Purple Top 08/02/2020,06/20 Tdap 11/30/2015,04/21/2015 Family History Medical History Relation Name Comments Cancer Father Raghavendra High Cholesterol Father Raghavendra Hypertension Father Raghavendra Stroke Father Raghavendra Cancer Mother Flori Cancer, Other Mother Flori Depression Mother Flori Diabetes Mother Flori Glaucoma Mother Flori Heart Disease Mother Flori High Cholesterol Mother Flori Hypertension Mother Flori Relation Name Status Comments Father Raghavendra Mother Flori Social History Tobacco Use Types Packs/Day Years Used Date Smoking Tobacco: Former Cigarettes 1 5 Smokeless Tobacco: Never Tobacco Cessation:Counseling Given: Not Answered Comments:Haven't smoked in over 10-11 years Alcohol Use Standard Drinks/Week Comments Yes 2 (1 standard drink = 0.6 oz pur e alcohol) PHQ-2 Answer Date Recorded PHQ-2 Score 2 02/26/2023 Comments No Sex and Gender Information Value Date Recorded Sex Assigned at Not on file Legal Sex Female 11:10 AM CDT Gender Identity Not on file Sexual Orientation Not on file Last Filed Vital Signs Vital Sign Reading Time Taken Comments Blood Pressure 132/67 06/24/2022 3:38 PM TRAVEL OCCUPATIONAL THERAPIST Pulse 71 06/24/2022 3:38 PM TRAVEL OCCUPATIONAL THERAPIST Temperature 36.7 C (98.1 F) 12/08/2021 9:28 AM CDT Respiratory Rate - - Oxygen Saturation - - Inhaled Oxygen Concentration - - Weight 66.7 kg (147 lb) 06/24/2022 3:38 PM TRAVEL OCCUPATIONAL THERAPIST Height 165.1 cm (5' 5) 09/13/2022 7:33 AM CDT Body Mass Index 24.46 06/24/2022 3:38 PM TRAVEL OCCUPATIONAL THERAPIST Plan of Treatment Health Maintenance Due Date Last Done Comments Cervical Cancer Screening Due 1987 Hep C Screening (Preventive Services) 1987 HIV Screening (Preventive Services) 2003 HepB Vaccine (1) 07/04/2006 Adult Preventive Visit 10/09/2022 10/09/2020 COVID-19 Vaccine ( season) 2023 05/05/2021, 08/02/2020, 08/02/2020, Additional history exists Influenza Vaccine (#1) 2024 DTaP/Tdap/Td Vaccine (3 - Tdap) 11/29/2025 11/30/2015, 04/21/2015 Zoster/Shingles Vaccine (1 of 2) 07/04/2037 HPV Vaccine Aged Out No longer eligi ble based on patient's age to complete this topic HepA Vaccine Aged Out No longer eligi ble based on patient's age to complete this topic Hib Vaccine Aged Out No longer eligi ble based on patient's age to complete this topic IPV (Polio) Vaccine Aged Out No longe r eligible based on patient's age to complete this topic MCV4 Vaccine Aged Out No longer eligi ble based on patient's age to complete this topic Meningococcal B Vaccine Aged Out No l onger eligible based on patient's age to complete this topic Pneumococcal Vaccine Aged Out No long er eligible based on patient's age to complete this topic Insurance [employer]URNED [employer]IL [phone] [place]OL[place] [id number] [facility] RETURNED MAIL [phone] [place]OL[place] [id number] RETURNED [employer]IL [phone] [place] [id number] RETURNED MAIL [phone] [place] REYNOLDS [id number] [facility] Care Teams Manager Military Relationship Specialty Start Date End Date Needs Pcp, [place] [address] PCP - General 10/20/24
--- NOTE | 2024-10-25 14:50 | ED_ITS ---
HPI - General Adult General Date Seen: 10/25/24 Chief complaint: Headache/Migraine Stated complaint: Migraine, vision difficulty Time Seen by Provider: 10/25/24 13:33 History of Present Illness HPI narrative: Patient is a 39-year-old woman, generally healthy, who presents for evaluation of headaches and vision changes. She notes that a couple of weeks ago she was doing handstand pushups, and slipped, landing on her head and bending her neck funny. Since that time she has been having problems with headaches intermittently and also vision changes, sometimes the vision changes are related to flashing lights which seemed to start in 1 field of vision and then moved across to involve both eyes, other time she says that it is more of a dark spot that will then involve 1 I completely leaving other eye alone. Initially she was getting headaches every day associated with this, now she often just gets the vision changes. This will last maybe 30 minutes and then resolved. She was seen at [facility] on the and had a CT of the head and a CT angiogram of the head and neck which was normal, those records are reviewed. She has an appointment with neurology for November 24, but says she was told she should be seen again if she continued to have vision changes. She says she is having these daily, and it is affecting her quality of life, making it difficult to function well at work. She denies any other neurologic symptoms. Not symptomatic right now. She has a history of migraine when she was , has not had problems for the past 8 years or so. Related Data Home Medications ?Medication ?Instructions ?Recorded ?Confirmed alprazolam 0.25 mg tablet 0.25 mg PO QPM PRN 10/25/24 10/25/24 ashwagandha extract 120 mg capsule mg PO 10/25/24 [id number]-bpohopknffbmm-pqwywntj PO 10/25/24 Previous Rx's ?Medication ?Instructions ?Recorded sumatriptan succinate 50 mg tablet 50 mg PO Q2-4H PRN migraine 10/25/24 headache #7 tabs topiramate 50 mg tablet (Topamax) 50 mg PO BID #30 tab s 10/25/24 Allergies Allergy/AdvReac Type Severity Reaction Status Date / Time Sulfa (Sulfonamide Allergy Unknown Verified 10/25/24 12:06 Antibiotics) Review of Systems Status of ROS: Reports: 10 or more systems reviewed and unremarkable except as noted in History and below Exam Narrative: Exam Narrative: Vital signs reviewed In general, alert, nontoxic woman, looks comfortable. Head: Normocephalic, atraumatic. Eyes: Sclera clear. Pupils equal and reactive. Extraocular movements are full, no diplopia. ENT: Mucous membranes moist. Neck: Supple without adenopathy. Nontender to palpation. Heart: Regular rate and rhythm without murmur. Lungs: Clear. No increased work of breathing, crackles or wheezes. Abdomen: Soft, nontender to palpation. Extremities: Well perfused, pulses intact. No significant edema. Neurologic: Alert, conversant. Speech fluent, face symmetric. Moves all extremities equally. Gait is normal. Visual barker are full to confrontation. Skin: Warm, dry well perfused. Affect: Normal. Const: Vital Signs, click to edit/add: Vital Signs - 24 hr 10/25/24 11:58 Temperature 98.9 F Pulse Rate [Right] 78 Respiratory Rate 18 Blood Pressure [Ri ght Upper Arm] 128/83 Pulse Oximetry 99 Oxygen Delivery Me thod Room Air Course Course ED Course: I reviewed her records and CT scans from the . I discussed her case with neurology. I feel her presentation is most consistent with ocular migraine and he concurs. He did not feel that additional imaging in the form of MRI was necessary today, but did note that if patient would feel significantly reassured by this that it would be something we could do today. Otherwise, could be done as an outpatient. I reviewed options with her. She actually is comfortable pursuing this as an outpatient. Discussed that we could get her in to see primary care likely before her neurology appointment get an MRI done as an outpatient that way. She was in agreement with that plan. In terms of management of her symptoms, Neurology recommended a preventative medicine at this point in the form of topiramate. I have prescribed that 50 mg b.i.d., I have also given her Imitrex which she can trial for symptoms acutely. Side effects discussed. Reviewed reasons to return such as severe uncontrolled symptoms which do not improve or new neurologic changes. Otherwise outpatient follow-up as outlined above. Vital Signs Vital signs: Initial Vital Signs Temperature 98.9 F 10/25/24 11:58 Temperature Source Temporal Artery Scan 10/25/24 11:58 Pulse Rate 78 10/25/24 11:58 Respiratory Rate 18 10/25/24 11:58 Blood Pressure 128/83 10/25/24 11:58 Blood Pressure Mean 98 10/25/24 11:58 Blood Pressure Position Sitting 10/25/24 11:58 Pulse Oximetry 99 10/25/24 11:58 Oxygen Delivery Method Room Air 10/25/24 11:58 Vital Signs Temperature 98.9 F 10/25/24 11:58 Pulse Rate 78 10/25/24 11:58 Respiratory Rate 18 10/25/24 11:58 Blood Pressure 128/83 10/25/24 11:58 Pulse Oximetry 99 10/25/24 11:58 Oxygen Delivery Method Room Air 10/25/24 11:58 Temperature 98.9 F 10/25/24 11:58 Pulse Rate 78 10/25/24 11:58 Respiratory Rate 18 10/25/24 11:58 Blood Pressure 128/83 10/25/24 11:58 Pulse Oximetry 99 10/25/24 11:58 Oxygen Delivery Method Room Air 10/25/24 11:58 Discharge Plan Discharge Clinical Impression: Ocular migraine Patient Disposition: Home, Self-Care Condition: Stable Instructions: Ocular Migraine (ED) Additional Instructions: Topamax as prescribed. As we discussed, you can try Imitrex as an abortive medicine. Be aware that people often have side effects as we discussed. These are not generally dangerous. Follow-up with neurology as planned on November 24. Dr. Castrejon sees patients at the [facility] in [place]. Their number is [phone]. If he would like to follow up with him, you could arrange for outpatient MRI prior to your neurology appointment. Return to the ER at any time if you feel you have worsening or new neurologic changes, severe headache, or other new changes. Prescriptions: New topiramate [Topamax] 50 mg tablet 50 mg PO BID Qty: 30 2RF sumatriptan succinate 50 mg tablet 50 mg PO Q2-4H PRN (Reason: migraine headache) Qty: 7 0RF Rx Instructions: do not exceed 4 doses per 24 hrs No Action alprazolam 0.25 mg tablet 0.25 mg PO QPM PRN [id number]-cumrzqnvntfnz-[id number] [Excedrin Migraine] PO ashwagandha extract 120 mg capsule PO Follow Up/Referrals: Provider,Not a Local [Primary Care Provider, Family Practice] Stand Alone Forms: [facility] Info Instructions
== END 2024-10-25 14:41 | disposition home or self-care (01) ==
PROVIDERS: Emergency Provider Emergency Medicine
DX: G43.B0 Ophthalmoplegic migraine, not intractable (principal)
CPT/HCPCS: 99284